=== PATIENT | female | born 1980 | race African-American/Black ===

== ENCOUNTER 2016-04-16 17:20 | Emergency (ER) | payer OTHER ==
[~2016-04-16] VITALS: Ht 162.6 cm; Wt 92.5 kg
[~2016-04-16 17:20] MED LIST: CYCLOBENZAPRINE10 MG ORAL; DOXYCYCLINE MO100 MG ORAL; NAPROSYN500 M1 ORAL; TYLENOL EXTRA500 MG ORAL
[2016-04-16] MEDS ORDERED: GABAPENTIN300 MG ORAL (19:01)
[2016-04-16 19:06] VITALS: BP 126/86
[2016-04-16 19:09] VITALS: BP 126/86
--- NOTE | 2016-04-19 13:26 | Emergency Room Report ---
History of Present Illness General Chief Complaint: General Complaint Present Illness HPI The pt is a 35 yo F presenting with limb numbness which began 3 days prior for no known reason. The pt does admit to a hx of anxiety disorder but is not taking any medications. The pt denies any new events or stressors in her life. The pt states he numbness is intermittent and lasts 30 minutes at a time. The pt denies any pain. Pt denies any other symptoms including CP, SOB, TAVAREZ, dizziness, cold/heat intolerance, N, V, F, chills Allergies: Coded Allergies: No Known Allergies (Unverified , 08/19/14) Patient History Past Medical History: see triage record Pertinent Family History: none Reviewed Nursing Documentation: PMH: Agreed, PSxH: Agreed Nursing Documentation-PMH Hx Hypertension: Yes Hx Asthma: Yes Hx Diabetes: Yes Hx Cerebrovascular Accident: No - bi-polar,fatty liver,hyperlipidemia Review of Systems All Other Systems: negative except mentioned in HPI Physical Exam Vital Signs Date Time Temp Pulse Resp B/P Pulse Ox O2 Delivery O2 Flow Rate FiO2 04/16/16 17:31 98.2 92 20 126/86 97 Room Air Sp02 EP Interpretation: reviewed, normal General Appearance: no apparent distress, alert, GCS 15, non-toxic Head: normocephalic, atraumatic Eyes: bilateral eye PERRL, bilateral eye normal inspection ENT: hearing grossly normal, normal pharynx, no angioedema, normal voice Neck: full range of motion, supple/symm/no masses Respiratory: chest non-tender, lungs clear, normal breath sounds, speaking full sentences Cardiovascular #1: regular rate, rhythm, no edema Genitourinary: normal inspection, no CVA tenderness Musculoskeletal: back normal, gait/station normal, normal range of motion, non- tender Neurologic: alert, oriented x3, responsive, motor strength/tone normal, sensory intact, normal gait, speech normal Psychiatric: judgement/insight normal, memory normal, mood/affect normal, no suicidal/homicidal ideation Reflexes: 3+ bicep (R), 3+ bicep (L), 3+ tricep (R), 3+ tricep (L), 3+ knee (R) , 3+ knee (L) Skin: normal color, no rash, warm/dry, well hydrated Lymphatic: no adenopathy Medical Decision Making PA Attestation Dr. Daley is my supervising physician. Patient management was discussed with my supervising physician Diagnostic Impression: Primary Impression: Radiculopathy ER Course The pt is a 35 yo F presenting with limb numbness which began 3 days prior for no known reason. DDx: Muscle strain/spasm, radiculopathy, Disc herniation, hypothyroidism, anxiety, depression PE: vitals WNL. NAD HEENT exam unremarkable. No C spine tenderness. Full AROM of neck. No step- offs. PERRL. Lungs CTA bilat. RRR Extremities: SILT. 5/5 strength. DTR intact. Normal gait The pt is given a prescription for gabapentin and will FU with PMD. ER precautions given Last Vital Signs Date Time Temp Pulse Resp B/P Pulse Ox O2 Delivery O2 Flow Rate FiO2 04/16/16 19:09 88 18 126/86 97 Room Air 04/16/16 19:06 98.2 Status: improved Disposition: HOME, SELF-CARE Condition: Improved Scripts Gabapentin* (GABAPENTIN*) 300 Mg Capsule 300 MG ORAL Q12HR, #30 CAP 0 Refills Prov: MINOO HANDLEY 04/16/16 Patient Instructions: Radicular Pain Additional Instructions: I discussed my findings with the patient. All questions and concerns have been answered. Treatment and medication compliance have been addressed. I advised the patient that they need to follow up with PMD in 3-5 days. Return to ED if symptoms worsen, new symptoms arise, or if needed for any reason. Patient verbalized understanding of discharge instructions. The patient is advised that she needs to follow up with primary care doctor and possibly obtain an MRI MINOO HANLDEY Apr 19, 2016 13:26
== END 2016-04-16 19:05 | disposition home or self-care (01) ==
LOC: EMR 18:42
DX: M54.10 Radiculopathy, site unspecified (principal); I10 Essential (primary) hypertension; J45.909 Unspecified asthma, uncomplicated; E11.9 Type 2 diabetes mellitus without complications; E78.5 Hyperlipidemia, unspecified
CPT/HCPCS: 99283

== ENCOUNTER 2016-11-08 11:30 | Emergency (ER) | payer OTHER ==
[~2016-11-08] VITALS: Ht 162.6 cm; Wt 88.0 kg
[~2016-11-08 11:30] MED LIST changes: +GABAPENTIN300 MG ORAL
[2016-11-08 11:46] VITALS: BP 125/74
[2016-11-08] MEDS ORDERED: BACTRIM DS TAB1 EAC1 ORAL (12:18)
[2016-11-08 12:32] VITALS: BP 128/72
--- NOTE | 2016-11-10 09:26 | Emergency Room Report ---
History of Present Illness General Chief Complaint: Pain Source: Patient Present Illness HPI Patient present with complaints of discomfort to the right large toe she reports that she had a pedicure several days ago And that is when the pain started Denies any fevers there was some mild discharge She felt that there was some ingrowing of the nail as well Patient was placed on Keflex by urgent care and return for further eval Pain is 6/10 worse with ambulation She reports that she was sent from the urgent care for possiblly placing something on her foot to improve the discomfort Allergies: Coded Allergies: No Known Allergies (Unverified , 08/19/14) Patient History Past Medical History: see triage record Pertinent Family History: none Last Menstrual Period: 11/05/16 Reviewed Nursing Documentation: PMH: Agreed, PSxH: Agreed Nursing Documentation-PMH Past Medical History: No History, Except For Hx Hypertension: Yes Hx Asthma: Yes Hx Diabetes: Yes Hx Cerebrovascular Accident: No - bi-polar,fatty liver,hyperlipidemia Review of Systems All Other Systems: negative except mentioned in HPI Physical Exam Vital Signs Date Time Temp Pulse Resp B/P (MAP) Pulse Ox O2 Delivery O2 Flow Rate FiO2 11/08/16 11:39 97.3 93 18 125/74 100 Room Air Sp02 EP Interpretation: reviewed, normal General Appearance: well appearing, no apparent distress Head: normocephalic, atraumatic Eyes: bilateral eye PERRL, bilateral eye EOMI ENT: normal pharynx Gastrointestinal: non tender, soft Musculoskeletal: other - Discomfort on palpation on the medial aspect of the right large toe, no obvious fluctuance however there was some mild fullness noted, appears to be possible early ingrown nail/paronychia Neurologic: alert, oriented x3 Skin: other - as above Medical Decision Making Diagnostic Impression: Primary Impression: paronychia ER Course Patient had Bactrim added to her course of medication we'll continue warm soakings patient was provided with a postop shoe to decrease some pressure on the foot in a stable for close Podiatry followup Last Vital Signs Date Time Temp Pulse Resp B/P (MAP) Pulse Ox O2 Delivery O2 Flow Rate FiO2 11/08/16 12:32 97.3 80 20 128/72 100 Room Air Status: improved Disposition: HOME, SELF-CARE Condition: Stable Scripts Trimethoprim/Sulfamethoxazole 160/800* (BACTRIM DS TABLET*) 1 Each Tablet 1 TAB ORAL Q12H, #14 TAB 0 Refills Prov: JESUS LOZADA D.O. 11/08/16 Referrals: [facility] (PCP) Patient Instructions: Robin, [id number] Additional Instructions: The area in question shows clear signs of infection, likely from the procedure he had recently. You are being started on antibiotics, the area could require incision. He had reported that you're seeing your primary physician tomorrow, and it is felt that podiatry referral would be appropriate. At this time there are no signs or clinical findings requiring incision emergently JESUS LOZADA D.O. Nov 10, 2016 09:26
== END 2016-11-08 12:34 | disposition home or self-care (01) ==
LOC: EMR 12:15
DX: L03.031 Cellulitis of right toe (principal); I10 Essential (primary) hypertension; E11.9 Type 2 diabetes mellitus without complications; J45.909 Unspecified asthma, uncomplicated; E78.5 Hyperlipidemia, unspecified
CPT/HCPCS: 99283

== ENCOUNTER 2017-03-25 23:08 | Emergency (ER) | payer OTHER ==
[~2017-03-25] VITALS: Ht 162.6 cm; Wt 81.6 kg
[~2017-03-25 23:08] MED LIST changes: +BACTRIM DS TAB1 EAC1 ORAL
[2017-03-25] MEDS ORDERED: TRAZODONE HCL50 MG ORAL (23:17)
[2017-03-25] MEDS ORDERED: BENZTROPINE ME0.5 MG PO (23:17)
[2017-03-25] MEDS ORDERED: BENADRYL25 MG ORAL (23:17)
[2017-03-25] MEDS ORDERED: MIRTAZAPINE15 MG ORAL (23:17)
[2017-03-25] MEDS ORDERED: METFORMIN HCL500 M1 ORAL (23:17)
[2017-03-25] MEDS ORDERED: TOPIRAMATE25 MG ORAL (23:17)
[2017-03-25] MEDS ORDERED: ATORVASTATIN CA20 MG ORAL (23:17)
[2017-03-25] MEDS ORDERED: RISPERIDONE0.25 MG PO (23:17)
[2017-03-26 00:15] LABS: APPEARANCE,URINE CLEAR; BILIRUBIN, URINE NEGATIVE (NEGATIVE); COLOR,URINE PALE YELLOW; GLUCOSE, URINE (UA) NEGATIVE (NEGATIVE); KETONES,URINE NEGATIVE (NEGATIVE); NITRITE,URINE NEGATIVE (NEGATIVE); PH,URINE 5 (4.5-8.0); PROTEIN,URINE NEGATIVE (NEGATIVE); UROBILINOGEN,URINE NORMAL MG/DL (0.0-1.0)
[2017-03-26 00:28] LABS: LEUKOCYTE ESTERASE ,URINE 2+ (NEGATIVE)
[2017-03-26] MEDS ORDERED: CIPROFLOXACIN500 M2 ORAL (00:39)
[2017-03-26] MEDS ORDERED: IBUPROFEN600 MG ORAL (00:39)
[2017-03-26 00:46] VITALS: BP 123/92
--- NOTE | 2017-03-26 01:36 | Emergency Room Report ---
History of Present Illness General Chief Complaint: Lower Back Pain or Injury Source: Patient Present Illness HPI Patient presents with complaints of low back pain Initially reported that she felt something when she caught her daughter as she was falling However also has had the pain without this Pain is worse with movement Rates it as 3/10 denies any saddle paresthesia denies any fevers or chills denies any neuropathy Allergies: Coded Allergies: No Known Allergies (Unverified , 08/19/14) Patient History Past Medical History: see triage record Pertinent Family History: none Last Menstrual Period: September Reviewed Nursing Documentation: PMH: Agreed, PSxH: Agreed Nursing Documentation-PMH Hx Hypertension: Yes Hx Asthma: Yes Hx Diabetes: Yes Hx Cerebrovascular Accident: No - bi-polar,fatty liver,hyperlipidemia Review of Systems All Other Systems: negative except mentioned in HPI Physical Exam Vital Signs Date Time Temp Pulse Resp B/P (MAP) Pulse Ox O2 Delivery O2 Flow Rate FiO2 03/25/17 23:10 97.3 77 16 123/92 100 Room Air 97.3 Sp02 EP Interpretation: reviewed, normal General Appearance: well appearing, no apparent distress Head: normocephalic, atraumatic Eyes: bilateral eye PERRL, bilateral eye EOMI ENT: normal pharynx, normal voice Neck: supple Respiratory: lungs clear Cardiovascular #1: regular rate, rhythm, no edema Gastrointestinal: non tender, soft Musculoskeletal: other - Mild discomfort paraspinal L3-4 no midline step-off full range of motion Neurologic: alert, oriented x3, responsive, lpn rn III-XII nml as tested Skin: no rash Lymphatic: no adenopathy Medical Decision Making Diagnostic Impression: Primary Impression: UTI (lower urinary tract infection) ER Course Patient initial complaint sounds to be more musculoskeletal however with the lack of trauma and the pain urine sample was also obtained there is evidence of bacteria patient placed on antibiotics and pain medicine no signs of neurological deficit I did not feel emergency imaging was required and the patient is stable for close followup Labs Test 03/25/17 23:57 Urine Color Pale yellow Urine Appearance Clear Urine pH 5 (4.5-8.0) Urine Specific [place] 1.025 (1.005-1.035) Urine Protein Negative (NEGATIVE) Urine Glucose (UA) Negative (NEGATIVE) Urine Ketones Negative (NEGATIVE) Urine Occult Blood Negative (NEGATIVE) Urine Nitrite Negative (NEGATIVE) Urine Bilirubin Negative (NEGATIVE) Urine Urobilinogen Normal MG/DL (0.0-1.0) Urine Leukocyte Esterase 2+ (NEGATIVE) Urine RBC 0-2 /HPF (0 - 2) Urine WBC 20-30 /HPF (0 - 2) Urine Squamous Epithelial Cells Many /LPF (NONE/OCC) Urine Bacteria Few /HPF (NONE) Urine HCG, Qualitative Negative Last Vital Signs Date Time Temp Pulse Resp B/P (MAP) Pulse Ox O2 Delivery O2 Flow Rate FiO2 03/26/17 00:46 97.3 16 123/92 100 Room Air 97.3 03/25/17 23:10 77 Status: improved Disposition: HOME, SELF-CARE Condition: Improved Scripts Ibuprofen* (MOTRIN*) 600 Mg Tablet 600 MG ORAL Q8H Y for For Pain, #20 TAB 0 Refills Prov: JESUS LOZADA D.O. 03/26/17 Ciprofloxacin Hcl* (CIPROFLOXACIN HCL*) 500 Mg Tablet 500 MG ORAL Q12H, #14 TAB 0 Refills Prov: JESUS LOZADA D.O. 03/26/17 Referrals: [facility] (PCP) Patient Instructions: Back Pain, Adult, Urinary Tract Infection, [id number] Additional Instructions: Patient is provided with the discharge instructions notified to follow up with primary doctor in the next 2-3 days otherwise return to the er with any worsening symptoms. Please note that this report is being documented using [employer] technology. This can lead to erroneous entry secondary to incorrect interpretation by the dictating instrument. JESUS LOZADA D.O. Mar 26, 2017 01:36
== END 2017-03-26 00:47 | disposition home or self-care (01) ==
LOC: EMR 23:28
DX: N39.0 Urinary tract infection, site not specified (principal); I10 Essential (primary) hypertension; J45.909 Unspecified asthma, uncomplicated; E11.9 Type 2 diabetes mellitus without complications; E78.5 Hyperlipidemia, unspecified
CPT/HCPCS: 81003; 81025; 87086; 99283

== ENCOUNTER 2017-06-18 09:15 | Emergency (ER) | payer OTHER ==
[~2017-06-18] VITALS: Ht 162.6 cm; Wt 98.0 kg
[~2017-06-18 09:15] MED LIST changes: +ATORVASTATIN CA20 MG ORAL; +BENADRYL25 MG ORAL; +BENZTROPINE ME0.5 MG PO; +CIPROFLOXACIN500 M2 ORAL; +IBUPROFEN600 MG ORAL; +METFORMIN HCL500 M1 ORAL; +MIRTAZAPINE15 MG ORAL; +RISPERIDONE0.25 MG PO; +TOPIRAMATE25 MG ORAL; +TRAZODONE HCL50 MG ORAL
[2017-06-18] MEDS ORDERED: BREO ELLIPTA 11 EACH IH (09:23)
[2017-06-18] MEDS ORDERED: BENAZEPRIL HCL10 MG ORAL (09:23)
[2017-06-18] MEDS ORDERED: TRAMADOL HCL50 MG ORAL (09:26)
[2017-06-18] MEDS ORDERED: ACETAMINOPHEN-1 EAC1 ORAL (09:26)
[2017-06-18 09:30] VITALS: BP 143/96
[2017-06-18 09:55] LABS: APPEARANCE,URINE SLIGHTLY CLOUDY; BILIRUBIN, URINE NEGATIVE (NEGATIVE); COLOR,URINE YELLOW; GLUCOSE, URINE (UA) NEGATIVE (NEGATIVE); KETONES,URINE NEGATIVE (NEGATIVE); LEUKOCYTE ESTERASE ,URINE 1+ (NEGATIVE); NITRITE,URINE NEGATIVE (NEGATIVE); PH,URINE 5 (4.5-8.0); PROTEIN,URINE 1+ (NEGATIVE); UROBILINOGEN,URINE NORMAL MG/DL (0.0-1.0)
[2017-06-18] MEDS ORDERED: IBUPROFEN600 MG ORAL (11:13)
[2017-06-18 11:32] VITALS: BP 127/90
--- NOTE | 2017-06-19 09:34 | Emergency Room Report ---
History of Present Illness General Chief Complaint: Female Urogenital Problems Source: Patient, Medical Record Present Illness HPI Patient present with complaints of left inguinal discomfort Sharp pain intermittently denies any vomiting or diarrhea Denies any chest pain or shortness of breath Denies any dysuria frequency patient does not recall how the pain started When she steps or lifts her left leg she does feel some increased discomfort Denies any masses Allergies: Coded Allergies: No Known Allergies (Unverified , 08/19/14) Patient History Past Medical History: see triage record Pertinent Family History: none Last Menstrual Period: 8 months ago Now: No Reviewed Nursing Documentation: PMH: Agreed; PSxH: Agreed Nursing Documentation-PMH Past Medical History: No History, Except For Hx Hypertension: Yes Hx Asthma: Yes Hx Diabetes: Yes Hx Cerebrovascular Accident: No - bi-polar,fatty liver,hyperlipidemia Review of Systems All Other Systems: negative except mentioned in HPI Physical Exam Vital Signs Date Time Temp Pulse Resp B/P (MAP) Pulse Ox O2 Delivery O2 Flow Rate FiO2 06/18/17 09:18 97.5 84 18 143/96 96 Room Air 97.5 Sp02 EP Interpretation: reviewed, normal General Appearance: well appearing, no apparent distress Head: normocephalic, atraumatic Eyes: bilateral eye PERRL, bilateral eye EOMI ENT: hearing grossly normal, normal pharynx, TMs + canals normal, uvula midline Neck: full range of motion, supple, no meningismus, no bony tend Respiratory: lungs clear, normal breath sounds, no rhonchi, no respiratory distress, no retraction, no accessory muscle use Cardiovascular #1: normal peripheral pulses, regular rate, rhythm, no edema, no gallop, no JVD, no murmur Gastrointestinal: normal bowel sounds, non tender - Subjectively points to the left inguanal canal, soft, no mass, no organomegaly, non-distended, no guarding , no hernia, no pulsatile mass, no rebound Genitourinary: no CVA tenderness Musculoskeletal: normal inspection Neurologic: oriented x3, responsive, stationary plant operators III-XII nml as tested, motor strength/ tone normal, sensory intact Psychiatric: mood/affect normal Skin: normal color, no rash, warm/dry, palpation normal Lymphatic: normal inspection, no adenopathy Medical Decision Making Diagnostic Impression: Primary Impression: groin strain ER Course Patient's critical findings are in line and consistent with what appears to be likely groin sprain, the abdomen itself is soft and nontender urine sample was obtained which was clear And the patient stable for initial conservative outpatient trial Other differentials such as ovarian torsion, diverticulitis name a few are considered however do not appear to be clinically consistent Labs Test 06/18/17 09:26 Urine Color Yellow Urine Appearance Slightly cloudy Urine pH 5 (4.5-8.0) Urine Specific [place] 1.025 (1.005-1.035) Urine Protein 1+ (NEGATIVE) Urine Glucose (UA) Negative (NEGATIVE) Urine Ketones Negative (NEGATIVE) Urine Occult Blood Negative (NEGATIVE) Urine Nitrite Negative (NEGATIVE) Urine Bilirubin Negative (NEGATIVE) Urine Urobilinogen Normal MG/DL (0.0-1.0) Urine Leukocyte Esterase 1+ (NEGATIVE) Urine RBC 0-2 /HPF (0 - 2) Urine WBC 2-4 /HPF (0 - 2) Urine Squamous Epithelial Cells Few /LPF (NONE/OCC) Urine Bacteria Few /HPF (NONE) Urine HCG, Qualitative Negative (NEGATIVE) Last Vital Signs Date Time Temp Pulse Resp B/P (MAP) Pulse Ox O2 Delivery O2 Flow Rate FiO2 06/18/17 11:32 98.1 80 20 127/90 98 Room Air Status: improved Disposition: HOME, SELF-CARE Condition: Stable Scripts Ibuprofen* (MOTRIN*) 600 Mg Tablet 600 MG ORAL Q8H PRN for For Pain, #20 TAB 0 Refills Prov: Nasir Arroyo DO 06/18/17 Referrals: [facility],REFERRING (PCP) Patient Instructions: Groin Strain Additional Instructions: Patient is provided with the discharge instructions notified to follow up with primary doctor in the next 2-3 days otherwise return to the er with any worsening symptoms. Please note that this report is being documented using [employer] technology. This can lead to erroneous entry secondary to incorrect interpretation by the dictating instrument. Nasir Arroyo DO June 19, 2017 09:34
== END 2017-06-18 11:32 | disposition home or self-care (01) ==
LOC: EMR 10:06
DX: S39.011A Strain of muscle, fascia and tendon of abdomen, initial encounter (principal); W19.XXXA Unspecified fall, initial encounter; Y92.9 Unspecified place or not applicable; E11.9 Type 2 diabetes mellitus without complications; J45.909 Unspecified asthma, uncomplicated
CPT/HCPCS: 81003; 81025; 99283